=== PATIENT | male | born 1975 | race Caucasian/White ===

== ENCOUNTER 2018-08-25 16:39 | Emergency (ER) | payer MEDICAID ==
[~2018-08-25] VITALS: Ht 175.3 cm; Wt 108.9 kg
[2018-08-25 16:47] VITALS: BP_SYST 155
[2018-08-25 17:51] LABS: BILIRUBIN,URINE NEGATIVE (NEGATIVE); BLOOD, URINE TRACE (NEGATIVE); CLARITY/URINE CLEAR (CLEAR); COLOR,URINE YELLOW (YELLOW); GLUCOSE,URINE NEGATIVE (NEGATIVE); KETONES,URINE NEGATIVE (NEGATIVE); LEUKOCYTE ESTERASE ,URINE NEGATIVE (NEGATIVE); NITRITE, URINE NEGATIVE (NEGATIVE); PROTEIN URINE NEGATIVE (NEGATIVE); UROBILINOGEN,URINE 0.2 (0.2-1.0)
[2018-08-25 17:57] LABS: BACTERIA,URINE FEW /HPF (None Seen); RBC,URINE 0-3 /HPF (0-3)
[2018-08-25] MEDS ORDERED: cefTRIAXone 250 MG VIAL IM ONE (19:00)
[2018-08-25] MEDS ORDERED: LIDOCAINE 1%, 20 ML MDV 20 ML ONE (19:05)
[2018-08-25 19:12] VITALS: BP_SYST 147
== END 2018-08-25 19:11 | disposition home or self-care (01) ==
LOC: SED 16:39
DX: N45.1 Epididymitis (principal); R03.0 Elevated blood-pressure reading, without diagnosis of hypertension
CPT/HCPCS: 76870; 81000; 96372; 99284; J0696; J2001

== ENCOUNTER 2022-04-24 22:30 | Inpatient (IN) | payer MEDICAID ==
[~2022-04-24] VITALS: Ht 175.3 cm; Wt 108.9 kg
[2022-04-24 22:40] VITALS: BP_SYST 134
--- NOTE | 2022-04-24 22:55 | NUR ---
Pt from home with c/o LLQ pain that radiates to the left testical that started around [id number]. Pt states that he felt a popping feeling in the abd. Pt has hx of intestinal block. BP 134/96, made aware.
[2022-04-24] MEDS ORDERED: KETOROLAC TROMETHAMINE 30 MG VIAL IVP ONE (23:00)
[2022-04-24] MEDS ORDERED: NACL 0.9% 1,000 ML IV ONE (23:00)
[2022-04-24] MEDS ORDERED: ONDANSETRON HCL 4 MG/2 ML VIAL IVP ONE (23:00)
--- NOTE | 2022-04-24 23:01 | NUR ---
Patient to ER bed 01 to gown for evaluation. Side rails up. Report given to Rolando SCHAEFER.
--- NOTE | 2022-04-24 23:02 | NUR ---
ER at bedside examining patient.
--- NOTE | 2022-04-24 23:05 | NUR ---
PATIENT BIB WHEELCHAIR FROM HOME ACCOMPANIED BY SIGNIFICANT OTHER COMPLAINING OF LEFT LOWER QUADRANT SHARP STABBING ABDOMINAL PAIN RADAITING TO LEFT TESTICLE STARTING AT 1600 TODAY. DENIES ANY NAUSEA, VOMITING, DIARRHEA, CONSTIPATION. PAIN 10/10 WAXES AND WANES. AFEBRILE. AOX4
--- NOTE | 2022-04-24 23:10 | NUR ---
# 20 gauge angiocath placed to LFA. Use of asceptic technique. Opsite placed over site. Blood return noted. Blood AND CULTURES for lab drawn from site. Flushed with 10 cc of normal saline. No evidence of infiltration noted. Patient tolerated well.
[2022-04-24 23:27] LABS: BASOPHILS % (AUTO) 0.3 % (0.0-2.0); EOSINOPHILS % (AUTO) 0.2 % (0.0-4.0); HEMATOCRIT 46.4 % (36-54); LYMPHOCYTES # (AUTO) 2.6 K/uL (1.0-5.5); LYMPHOCYTES % (AUTO) 16.4 % (20.5-51.5); MEAN CORPUSCULAR HEMOGLOBIN 31 pg (27-31); MEAN CORPUSCULAR HGB CONC 35 % (32-36); MEAN CORPUSCULAR VOLUME 91 fL (79.0-98.0); MONOCYTES # (AUTO) 0.8 K/uL (0.0-1.0); MONOCYTES % (AUTO) 4.9 % (1.7-9.3); NEUTROPHILS # (AUTO) 12.2 K/uL (1.8-7.7); NEUTROPHILS % (AUTO) 78.2 % (40.0-70.0); PLATELET COUNT (AUTO) 334 K/uL (130-430); RED BLOOD CELL COUNT(AUTO) 5.11 MIL/uL (4.2-6.2); RED CELL DISTRIBUTION WIDTH 13.1 % (9.0-15.0); WHITE BLOOD COUNT (AUTO) 15.6 K/uL (4.8-10.8)
[2022-04-24] MEDS ORDERED: MORPHINE 4 MG INJ. 4 MG/ML VIAL IVP ONE (23:30)
--- NOTE | 2022-04-25 00:30 | NUR ---
PATIENT RESTING COMFORTABLY. VSS. VOICED NO CONCERNS AT THIS TIME.
[2022-04-25 00:48] LABS: CALCIUM 9.5 mg/dL (8.4-11.0); CREATININE 1.08 mg/dL (0.55-1.30)
[2022-04-25 00:50] LABS: ALBUMIN 4.2 g/dL (3.4-4.8); TOTAL BILIRUBIN 0.4 mg/dL (0.0-1.0)
[2022-04-25] MEDS ORDERED: PIPERACILLIN/TAZO 3.375 GM in NS 50 ML IV ONE (01:45)
[2022-04-25] MEDS ORDERED: PIPERACILLIN/TAZOBACTAM 3.375 GM/VIAL (ZOSYN) IV ONE ×3 (01:55→05:29)
--- NOTE | 2022-04-25 03:11 | NUR ---
Admit bed requested Patient will be admitted to care of . Admitted to MED SURG unit. Diagnosis DIVERTICULITIS Inpatient (Yes or No) YES Observation (Yes or No) NO Orientation concerns or request close to nursing station (Yes or No) NO Covid Status PENDING On vent or bipap NO Isolation requirements NO Needs a sitter NO From Home (Yes or if No enter name of facility) YES Requires Dialysis (Yes or No) NO Med Rec Completed (Yes of No) PENDING
[2022-04-25] MEDS ORDERED: MORPHINE 2 MG/ML INJ. SYRINGE IVP PRN (03:15)
--- NOTE | 2022-04-25 03:15 | NUR ---
PATIENT MOVED TO BED 5
--- NOTE | 2022-04-25 03:15 | NUR ---
DEVAUGHN SWABBED AND SENT TO LAB
--- NOTE | 2022-04-25 04:41 | NUR ---
PATIENT STATES HE IS FULL CODE AND DOES NOT TAKE ANY MEDICATION..
--- NOTE | 2022-04-25 05:34 | NUR ---
URINE COLLECTED AND SENT TO LAB FOR ANALYSIS
--- NOTE | 2022-04-25 05:35 | NUR ---
URINE COLLECTED AND DIPSTICK TEST ADMINISTERED BY EMT RUBI AND RESULTS RECORDED
--- NOTE | 2022-04-25 05:45 | NUR ---
PATIENT MOVED FROM [facility] TO HOSPITAL BED. DENIES ANY PAIN AT THIS TIME. NO ACUTE DISTRESS NOTED . PATIENT LAYING PRONE, REPORTS FEELING MORE COMFORTABLE IN THAT POSITION
[2022-04-25] MEDS: D5/0.45 NS 1,000 ML IV SCH ×2 (05:48→23:20)
[2022-04-25] MEDS ORDERED: PIPERACILLIN/TAZO 3.375 GM in NS 50 ML IV SCH (06:00)
--- NOTE | 2022-04-25 07:14 | NUR ---
REPORT GIVEN TO SILVANO SHELLEY FOR CONTINUITY FOR CARE.
--- NOTE | 2022-04-25 07:30 | NUR ---
RECEIVED PT FROM SILVANO QUINN. PT ADMITTED FOR ABDOMINAL PAIN LLQ X ONE DAY WITH DX OF DIVERTICULOSIS. PT DENIES N/V. RESP E/U. ON R/A. NORMAL S1S2 NOTED. DISTAL PULSES NORMAL, SKIN INTACT, NO EDEMA. IV CATH 20G TO LFA WITH D5 1/2 NS RUNNING AT 50ML/HOUR. SIDERAILS UP X2. DENIES PAIN.
[2022-04-25] MEDS: MORPHINE 2 MG/ML INJ. SYRINGE IVP PRN ×3 (08:25→22:10)
[2022-04-25 08:30] LABS: BILIRUBIN,URINE NEGATIVE (NEGATIVE); BLOOD, URINE NEGATIVE (NEGATIVE); COLOR,URINE YELLOW (YELLOW); GLUCOSE,URINE NEGATIVE (NEGATIVE); KETONES,URINE 1+ (NEGATIVE); LEUKOCYTE ESTERASE ,URINE NEGATIVE (NEGATIVE); NITRITE, URINE NEGATIVE (NEGATIVE); PROTEIN URINE NEGATIVE (NEGATIVE); UROBILINOGEN,URINE 0.2 (0.2-1.0)
[2022-04-25 08:38] LABS: CLARITY/URINE CLEAR (CLEAR)
--- NOTE | 2022-04-25 08:50 | NUR ---
MORPHINE 2MG IVP GIVEN FOR ABDOMINAL PAIN 02/18. PT REPOSITIONED FOR COMFORT.
--- NOTE | 2022-04-25 10:00 | NUR ---
Patient will be admitted to care of SILVANO DECKER. Admitted to MEDICAL SURGICAL unit. Will go to room 129A. Belongings list completed. Complete and up to date summary report printed. SBAR report to be given at bedside with opportunity for questions.
--- NOTE | 2022-04-25 10:00 | NUR ---
receive the patient form emergency room rn to room 129Awith admitting diagnosis of diverticulitis . no complain of pain at this time . no sign and symptoms of respiratory distress . will continue to monitor
[2022-04-25 10:09] VITALS: BP_SYST 138
[2022-04-25] MEDS ORDERED: PIPERACILLIN/TAZOBACTAM 3.375 GM/ DEX-IS 50 ML PREMIX IV ONE ×2 (14:00→16:15)
--- NOTE | 2022-04-25 14:30 | NUR ---
pt complained pain . mophine sulfate 2mg was given by the rn
--- NOTE | 2022-04-25 17:00 | NUR ---
patient was transferred to 118b
--- NOTE | 2022-04-25 18:18 | NUR ---
will endorse to slot shift supervisor rm for continuity of care
[2022-04-25 19:30] VITALS: BP_SYST 137
--- NOTE | 2022-04-25 19:30 | NUR ---
INITIAL NOTE AT INITIAL ASSESSMENT, PATIENT IS RESTING IN BED, STABLE, NO SIGNS OF RESPIRATORY DISTRESS. PATIENT VERBALIZES TOLERABLE PAIN. PLAN OF CARE FOR THE EVENING IS COMMUNICATED WITH THE PATIENT. PATIENT SUCCESSFULLY DEMONSTRATES CORRECT USAGE OF CALL LIGHT AT THIS TIME. BED IS LOCKED, AND AT THE LOWEST LEVEL. FALL, SAFETY, AND ASPIRATION PRECAUTIONS WILL BE IN PLACE THROUGHOUT THE SHIFT. PATIENT IS NPO.
[2022-04-25] MEDS: ONDANSETRON HCL 4 MG/2 ML VIAL IVP PRN (22:08)
--- NOTE | 2022-04-25 22:10 | NUR ---
PAIN NOTE PRN MEDICATION GIVEN FOR PATIENT'S COMPLAINT OF SEVERE PAIN. WILL REASSESS.
[2022-04-25] MEDS: PIPERACILLIN/TAZOBACTAM 3.375 GM/ DEX-IS 50 ML PREMIX IV SCH (23:20)
[2022-04-26] VITALS: BP_SYST 122
--- NOTE | 2022-04-26 00:45 | NUR ---
NOTE PATIENT SLEEPING, STABLE, NO SIGNS OF RESPIRATORY DISTRESS. CALL LIGHT WITHIN REACH.
[2022-04-26] MEDS: MORPHINE 2 MG/ML INJ. SYRINGE IVP PRN ×4 (02:16→18:53)
--- NOTE | 2022-04-26 03:15 | NUR ---
ROUNDS PATIENT IS SLEEPING, STABLE, NO SIGNS OF RESPIRATORY DISTRESS. CALL LIGHT WITHIN REACH.
--- NOTE | 2022-04-26 06:00 | NUR ---
CLOSING NOTE PATIENT SLEPT WELL THROUGHOUT THE NIGHT, HE HAD CONSTANT ABDOMINAL PAIN, NO BOWEL MOVEMENTS. PATIENT VERBALIZED THAT PRN MEDICATION GIVEN TO HIM FOR PAIN WAS EFFECTIVE. AT THIS TIME, HE IS STABLE, NO SIGNS OF RESPIRATORY DISTRESS. CALL LIGHT WITHIN REACH. BED IS LOCKED, AND AT THE LOWEST LEVEL. FALL AND SAFETY PRECAUTIONS HAVE BEEN IN PLACE THROUGHOUT THE SHIFT. WILL CONTINUE TO MONITOR UNTIL REPORT IS GIVEN AT BEDSIDE TO AM NURSE.
[2022-04-26] MEDS: PIPERACILLIN/TAZOBACTAM 3.375 GM/ DEX-IS 50 ML PREMIX IV SCH ×3 (06:31→16:02)
[2022-04-26] MEDS: ONDANSETRON HCL 4 MG/2 ML VIAL IVP PRN ×3 (06:32→18:54)
--- NOTE | 2022-04-26 07:00 | NUR ---
Report received from cage shift manager RN for continuity of care. Patient stable.
[2022-04-26 07:44] VITALS: BP_SYST 127
[2022-04-26 12:00] VITALS: BP_SYST 132
[2022-04-26 16:00] VITALS: BP_SYST 124
--- NOTE | 2022-04-26 16:07 | NUR ---
CONSULTATION PAGE CALLED CONSULT FOR ID DR ROSARIO AND GI DR CONNELLY . S/W LE
--- NOTE | 2022-04-26 19:05 | NUR ---
Report given to hourly shift RN for continuity of care. Patient in stable condition. No distress noted.
[2022-04-26] MEDS: D5/0.45 NS 1,000 ML IV SCH (19:15)
--- NOTE | 2022-04-26 19:15 | NUR ---
OPENING NOTES Patient resting in bed - no s/s pain or distress noted. Respirations even and unlabored - head of bed elevated. IV site patent - no s/s redness, infection, or infiltration. Bed locked and in lowest position. Call light within reach.
[2022-04-26 20:00] VITALS: BP_SYST 130
[2022-04-26] MEDS ORDERED: cefTRIAXone 1 GM VIAL ONE (21:09)
[2022-04-26] MEDS ORDERED: metroNIDAZOLE 500 mg/NS 100 ML IV ONE (21:09)
[2022-04-26] MEDS: cefTRIAXone 1 GM in D5W 50 ML IV SCH (21:19)
[2022-04-26] MEDS: metroNIDAZOLE 500 mg/NS 100 ML IV SCH (23:11)
[2022-04-27] VITALS: BP_SYST 128
[2022-04-27] MEDS ORDERED: metroNIDAZOLE 500 mg/NS 100 ML IV ONE (00:11)
[2022-04-27] MEDS: MORPHINE 2 MG/ML INJ. SYRINGE IVP PRN ×2 (02:09→21:09)
[2022-04-27] MEDS: ONDANSETRON HCL 4 MG/2 ML VIAL IVP PRN (02:17)
[2022-04-27] MEDS: metroNIDAZOLE 500 mg/NS 100 ML IV SCH ×3 (05:37→21:05)
--- NOTE | 2022-04-27 07:32 | NUR ---
CLOSING NOTES Patient resting in bed - no s/s pain or distress noted. Respirations even and unlabored - head of bed elevated. IV site patent - no s/s redness, infection, or infiltration. Bed locked and in lowest position.
[2022-04-27 08:00] VITALS: BP_SYST 135
--- NOTE | 2022-04-27 10:30 | NUR ---
Assume of care Patient is AOx4. Ambulatory to restroom. No s.s of distress noted. Breathing is even and nonlabored, on room air. No SOB noted. Patient has new IV access, 22G R hand, blood returned. Flushed well. Patent. IVF running. RN administered IVP pain medication, per patient's request. Bed locked, alarm on, and at lowest position. Call light within reach.
[2022-04-27 11:05] VITALS: BP_SYST 145
--- NOTE | 2022-04-27 13:30 | NUR ---
Notes Patient is resting, eyes closed. No s.s of distress noted. Breathing is even and nonlabored, on room air. No facial grimace noted. IVF running. IV patent. Safety precautions in place and call light within reach.
[2022-04-27 15:05] VITALS: BP_SYST 141
[2022-04-27] MEDS: D5/0.45 NS 1,000 ML IV SCH (15:15)
--- NOTE | 2022-04-27 17:38 | NUR ---
Notes Patient's IV got pulled out. New IV access is Left outer forearm 22G. Blood return noted. Flushed well. Pain medication, IVP, administered by RN. Breathing is even and nonlabored, on room air. IVF running. IV patent. Bed locked, at lowest position, and alarm on. Call light within reach.
--- NOTE | 2022-04-27 19:40 | NUR ---
Closing Notes Patient is eating dinner. No s.s of distress noted. Breathing is even and nonlabored, on room air. Patient denies pain. NO SOB noted. IVF running. IV patent. All needs met. Bed locked, alarm on, and at lowest position. Call light within. Endorsed care to oncoming nurseLiz RN.
[2022-04-27 20:00] VITALS: BP_SYST 145
[2022-04-27] MEDS: cefTRIAXone 1 GM in D5W 50 ML IV SCH (20:48)
[2022-04-27 23:05] VITALS: BP_SYST 146
[2022-04-28] VITALS: BP_SYST 140
[2022-04-28 04:00] VITALS: BP_SYST 146
[2022-04-28] MEDS: MORPHINE 2 MG/ML INJ. SYRINGE IVP PRN ×2 (05:16→19:15)
[2022-04-28] MEDS: metroNIDAZOLE 500 mg/NS 100 ML IV SCH ×3 (06:17→21:05)
--- NOTE | 2022-04-28 06:49 | NUR ---
VSS medicated 2x Morphine very rude and bad mouth very impatient and very feisty, pulled out his IV cannula and re inserted very low tolerance to pain educated and all cares done.
[2022-04-28 07:00] VITALS: BP_SYST 143
[2022-04-28 08:00] VITALS: BP_SYST 143
[2022-04-28 09:17] LABS: BASOPHILS # (AUTO) 0.1 K/uL (0.0-0.2); BASOPHILS % (AUTO) 0.6 % (0.0-2.0); EOSINOPHILS # (AUTO) 0.2 K/uL (0.0-0.4); EOSINOPHILS % (AUTO) 1.2 % (0.0-4.0); HEMATOCRIT 43.8 % (36-54); HEMOGLOBIN 15.3 g/dL (14.0-18.0); LYMPHOCYTES # (AUTO) 1.5 K/uL (1.0-5.5); LYMPHOCYTES % (AUTO) 11.9 % (20.5-51.5); MEAN CORPUSCULAR HEMOGLOBIN 31 pg (27-31); MEAN CORPUSCULAR HGB CONC 35 % (32-36); MEAN CORPUSCULAR VOLUME 90 fL (79.0-98.0); MONOCYTES % (AUTO) 8.2 % (1.7-9.3); NEUTROPHILS # (AUTO) 9.5 K/uL (1.8-7.7); NEUTROPHILS % (AUTO) 78.1 % (40.0-70.0); PLATELET COUNT (AUTO) 324 K/uL (130-430); RED BLOOD CELL COUNT(AUTO) 4.86 MIL/uL (4.2-6.2); RED CELL DISTRIBUTION WIDTH 13.2 % (9.0-15.0); WHITE BLOOD COUNT (AUTO) 12.2 K/uL (4.8-10.8)
[2022-04-28 09:44] LABS: ALBUMIN 2.8 g/dL (3.4-4.8); CALCIUM 8.8 mg/dL (8.4-11.0); CREATININE 0.97 mg/dL (0.55-1.30)
[2022-04-28 09:58] LABS: TOTAL BILIRUBIN 0.4 mg/dL (0.0-1.0)
--- NOTE | 2022-04-28 11:14 | NUR ---
endorsed to SILVANO Gloria
[2022-04-28] MEDS: D5/0.45 NS 1,000 ML IV SCH (12:23)
[2022-04-28 16:27] VITALS: BP_SYST 144
[2022-04-28] MEDS ORDERED: POTASSIUM CHLORIDE 20 MEQ TAB.PRT.SR PO ONE (16:30)
--- NOTE | 2022-04-28 18:52 | NUR ---
PT HAS BEEN STABLE THE WHOLE SHIFT, NO C/O OF PAIN, VITALS WNL. NO FEVER. ALL MEDS OFFERED AND TAKEN.
[2022-04-28 20:00] VITALS: BP_SYST 141
--- NOTE | 2022-04-28 20:00 | NUR ---
OPENING NOTE PT IN BED ASLEEP. PT AOX3 AND ABLE TO VERBALIZE HIS NEEDS. PT HAS IV IN RFA WITH FLUIDS INFUSING AND WITH NO COMPLAINTS. PT ON TELE WITH NSR AND IS COMPLAINT WITH WEARING THE MONITOR. RESPIRATION ARE EVEN AND UNLABORED. PT HAS BRP AND URINAL AT BEDSIDE. ALL SAFETY MEASURE IN PLACE WILL CONTINUE TO MONITOR.
[2022-04-28] MEDS: cefTRIAXone 1 GM in D5W 50 ML IV SCH (21:05)
--- NOTE | 2022-04-28 22:30 | NUR ---
SHOWER PT TOOK SHOWER AFTER STAFF ASSESSMENT AND DENIES ANY DIZZINESS OR PAIN A THIS TIME. PT REPORTED FELELING BETTER AND HOPES HE WILL SLEEP BETTER
[2022-04-29] VITALS: BP_SYST 146
--- NOTE | 2022-04-29 01:30 | NUR ---
IV REMOVED PT REMOVED IV IN HIS SLEEP. NEW IV WILL BE PLACED
--- NOTE | 2022-04-29 03:00 | NUR ---
NEW IV PLACED PT HAS NEW IV 22G IN THE RFA WITH FLUIDS INFUSING AND NO COMPLAINT OF PAIN OR DISCOMFORT.
[2022-04-29] MEDS: MORPHINE 2 MG/ML INJ. SYRINGE IVP PRN (03:03)
[2022-04-29 04:00] VITALS: BP_SYST 145
--- NOTE | 2022-04-29 04:00 | NUR ---
PAIN PT C/O PAIN AND RATES PAIN LEVEL AT A 9/10. PT GIVEN MORPHINE ORDER PRN FOR PAIN
[2022-04-29] MEDS: D5/0.45 NS 1,000 ML IV SCH (06:02)
[2022-04-29] MEDS: metroNIDAZOLE 500 mg/NS 100 ML IV SCH (06:02)
[2022-04-29 07:00] LABS: CALCIUM 8.8 mg/dL (8.4-11.0); CREATININE 0.91 mg/dL (0.55-1.30)
[2022-04-29 07:48] LABS: BASOPHILS % (AUTO) 0.6 % (0.0-2.0); EOSINOPHILS # (AUTO) 0.2 K/uL (0.0-0.4); EOSINOPHILS % (AUTO) 2.8 % (0.0-4.0); HEMATOCRIT 43.7 % (36-54); HEMOGLOBIN 14.8 g/dL (14.0-18.0); LYMPHOCYTES # (AUTO) 1.7 K/uL (1.0-5.5); LYMPHOCYTES % (AUTO) 24.9 % (20.5-51.5); MEAN CORPUSCULAR HEMOGLOBIN 31 pg (27-31); MEAN CORPUSCULAR HGB CONC 34 % (32-36); MEAN CORPUSCULAR VOLUME 92 fL (79.0-98.0); MONOCYTES # (AUTO) 0.5 K/uL (0.0-1.0); MONOCYTES % (AUTO) 7.4 % (1.7-9.3); NEUTROPHILS # (AUTO) 4.5 K/uL (1.8-7.7); NEUTROPHILS % (AUTO) 64.3 % (40.0-70.0); PLATELET COUNT (AUTO) 323 K/uL (130-430); RED BLOOD CELL COUNT(AUTO) 4.76 MIL/uL (4.2-6.2); RED CELL DISTRIBUTION WIDTH 13.1 % (9.0-15.0)
[2022-04-29 08:00] VITALS: BP_SYST 131
--- NOTE | 2022-04-29 08:00 | NUR ---
Mr Andrey has been assessed as indicated. He denies pain and is resting quietly. Made aware that his diet has been advanced to Full Liquids
--- NOTE | 2022-04-29 09:40 | NUR ---
Mr Balderas has left AMA made aware. Mr Balderas was made aware of the risks involved in an AMA departure. He expressed that he understood. IV access was removed and walked to the [facility] unassisted to wait for his ride Diana [phone] this automobile service writer called his ride because his cell phone was . At the time of departure Mr Balderas had no s/s of distress or discomfort. He did experience one episode of being incontinent of stool. He was assisted by staff to get cleaned up. After this episode. Mr Balderas begin to state that he wanted to "go home"
--- NOTE | 2022-04-30 11:46 | NUR ---
Dispo code 07
== END 2022-04-29 09:40 | disposition left against medical advice (07) | DRG 244 ==
LOC: SED 22:30 → SMU 04-25 03:04
PROVIDERS: ADMIT Internal Medicine; ATTEND Internal Medicine
DX: K57.32 Diverticulitis of large intestine without perforation or abscess without bleeding (principal); R65.10 Systemic inflammatory response syndrome (SIRS) of non-infectious origin without acute organ dysfunction; Z20.822 Contact with and (suspected) exposure to COVID-19; Z79.899 Other long term (current) drug therapy
CPT/HCPCS: 36415; 76376; 80048; 80053; 81003; 83690; 85025; 87040; 96361; 96365; 96375; 99285; J0696; J1885; J2270; J2405; J2543; J3490; J7060

== ENCOUNTER 2022-11-07 11:17 | Emergency (ER) | payer MEDICAID ==
[~2022-11-07] VITALS: Ht 175.3 cm; Wt 108.9 kg
[2022-11-07 11:31] VITALS: BP_SYST 130
--- NOTE | 2022-11-07 11:38 | NUR ---
TRIAGE NOTE PER TRIAGE FLOWSHEET. URINE CUP PROVIDED FOR PT. COMFORT MEASURES AND SUPPORTIVE CARE INITIATED. PT STATES HE IS HOMELESS AND IS VISITING HIS SON IN THE AREA. 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 STATES ONSET OF SYMPTOMS RECENT. DENIES KNOWN PRECIPITATING FACTORS. STATES SMOKED MARIJUANA IN PAST, BUT NOT PRESENTLY. DENIES USE OR ABUSE OF ANY ELICIT SUBSTANCES. DENIES ETOH USE. STATES SMOKES CIGARETTES, THEN LATER ADD "AND MARIJUANA", AFTER PREVIOUS DENIAL. TO ROOM 8. REPORT GIVEN AND CARE ENDORSED TO PRIMARY NURSE.
[2022-11-07] MEDS ORDERED: METOCLOPRAMIDE HCL 10 MG/2 ML VIAL IVP ONE (12:00)
[2022-11-07] MEDS ORDERED: MECLIZINE HCL 25 MG TABLET (ANITVERT) PO ONE (12:00)
--- NOTE | 2022-11-07 12:00 | NUR ---
Patient is a 47-year-old male who presents emergency department after smoking marijuana earlier this morning with complaints of vertigo, headache, dizziness, nausea, and one episode of attempted vomiting but nothing was produced. Patient denies any paresthesia, numbness, or any loss of function.
[2022-11-07 12:28] LABS: BASOPHILS % (AUTO) 0.5 % (0.0-2.0); EOSINOPHILS # (AUTO) 0.1 K/uL (0.0-0.4); EOSINOPHILS % (AUTO) 0.8 % (0.0-4.0); HEMATOCRIT 39.3 % (36-54); HEMOGLOBIN 13.4 g/dL (14.0-18.0); LYMPHOCYTES # (AUTO) 1.1 K/uL (1.0-5.5); LYMPHOCYTES % (AUTO) 12.3 % (20.5-51.5); MEAN CORPUSCULAR HEMOGLOBIN 31 pg (27-31); MEAN CORPUSCULAR HGB CONC 34 % (32-36); MEAN CORPUSCULAR VOLUME 92 fL (79.0-98.0); MONOCYTES # (AUTO) 0.5 K/uL (0.0-1.0); MONOCYTES % (AUTO) 6.3 % (1.7-9.3); NEUTROPHILS % (AUTO) 80.1 % (40.0-70.0); PLATELET COUNT (AUTO) 321 K/uL (130-430); RED BLOOD CELL COUNT(AUTO) 4.27 MIL/uL (4.2-6.2); WHITE BLOOD COUNT (AUTO) 8.8 K/uL (4.8-10.8)
[2022-11-07 12:44] LABS: ANION GAP 10 (5-15); CALCIUM 8.7 mg/dL (8.4-11.0); CHLORIDE 105 mmol/L (98-107); CREATININE 0.86 mg/dL (0.55-1.30); GFR AFRICAN AMERICAN 124 mL/min (>90); GLUCOSE 113 mg/dL (70-99); UREA NITROGEN, BLOOD 16 mg/dL (8-21)
[2022-11-07 12:52] LABS: ALANINE AMINOTRANSFERASE 15 U/L (12-78); ALBUMIN 3.2 g/dL (3.4-4.8); ASPARTATE AMINOTRANSFERASE 14 U/L (10-37); TOTAL BILIRUBIN 0.2 mg/dL (0.0-1.0)
--- NOTE | 2022-11-07 13:45 | NUR ---
ER at bedside examining patient.
[2022-11-07] MEDS ORDERED: MECL-261 PO (13:51)
--- NOTE | 2022-11-07 14:39 | NUR ---
Patient given written and verbal discharge instructions and verbalizes understanding. ER MD discussed with patient the results and treatment provided. Patient in stable condition. ID arm band removed. Rx of MECLIZINE given. Patient educated on pain management and to follow up with PMD. Opportunity for questions provided and answered. Medication side effect fact sheet provided.
[2022-11-07 14:40] VITALS: BP_SYST 130
== END 2022-11-07 14:39 | disposition home or self-care (01) ==
LOC: SED 11:17
DX: R42 Dizziness and giddiness (principal); R51.9 Headache, unspecified; R11.2 Nausea with vomiting, unspecified; F12.90 Cannabis use, unspecified, uncomplicated; Z79.899 Other long term (current) drug therapy
CPT/HCPCS: 99285; 96374; 70450; 71045; 80053; 82962; 85025; 84484; 36415; 93005; 76376; J8597; J2765